=== PATIENT | male | born 1995 | race American Indian/Alaskan Native ===

== ENCOUNTER 2021-01-17 11:46 | Emergency (ER) | payer SELFPAY ==
--- NOTE | 2021-01-17 13:31 | Emergency Department Report ---
- General Stated complaint: FINGERS CUT/LAC Time Seen by Provider: 01/17/21 13:29 Source: patient Mode of arrival: Ambulatory Limitations: No Limitations - History of Present Illness Initial comments: 25 yo AA comes to ER with lac to his 1/2/3 right finger. 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 tdap unknown Full ROM of hand/fingers MD complaint: other -: Sudden, hour(s) Tetanus Up to Date: no Location: RUE Severity: mild Quality: aching Consistency: constant Improves with: none Worsens with: none Context: other Associated symptoms: denies other symptoms - Related Data Previous Rx's Medication Instructions Recorded Last Taken Type cephALEXin [Keflex] 500 mg PO Q12HR #20 cap 01/17/21 Unknown Rx Allergies Allergy/AdvReac Type Severity Reaction Status Date / Time No Known Allergies Allergy Unverified 01/17/21 13:42 Abscess Boil HPI - HPI Stated Complaint: FINGERS CUT/LAC Time Seen by Provider: 01/17/21 13:29 Home Medications: Previous Rx's Medication Instructions Recorded Last Taken Type cephALEXin [Keflex] 500 mg PO Q12HR #20 cap 01/17/21 Unknown Rx Allergies/Adverse Reactions: Allergies Allergy/AdvReac Type Severity Reaction Status Date / Time No Known Allergies Allergy Unverified 01/17/21 13:42 ED Review of Systems ROS: Stated complaint: FINGERS CUT/LAC Other details as noted in HPI Comment: All other systems reviewed and negative ED Past Medical Hx - Past Medical History Previous Medical History?: Yes Hx Asthma: Yes - Surgical History Past Surgical History?: No - Medications Home Medications: Home Medications Medication Instructions Recorded Confirmed Last Taken Type cephALEXin [Keflex] 500 mg PO Q12HR #20 cap 01/17/21 Unknown Rx ED Physical Exam - General Limitations: No Limitations General appearance: alert, in no apparent distress - Head Head exam: Present: atraumatic, normocephalic - Eye Eye exam: Present: normal appearance - ENT ENT exam: Present: mucous membranes moist - Neck Neck exam: Present: normal inspection - Respiratory Respiratory exam: Present: normal lung sounds bilaterally. Absent: respiratory distress - Cardiovascular Cardiovascular Exam: Present: regular rate, normal rhythm. Absent: systolic murmur, diastolic murmur, rubs, gallop - GI/Abdominal GI/Abdominal exam: Present: soft, normal bowel sounds - Rectal Rectal exam: Present: deferred - Extremities Exam Extremities exam: Present: normal inspection - Back Exam Back exam: Present: normal inspection - Neurological Exam Neurological exam: Present: alert, oriented X3 - Psychiatric Psychiatric exam: Present: normal affect, normal mood - Skin Skin exam: Present: warm, dry, normal color, other. Absent: rash - Other Other exam information: right hand index finger- skin flap/ U shaped superficial wound middle finger 1 cm lac - superficial ring finger- at DIP joint 1 cm lac; through SQ tissue; full ROM ED Course Vital Signs 01/17/21 13:40 Temperature 98.8 F Pulse Rate 64 Respiratory 16 Rate Blood Pressure 153/79 [Left] O2 Sat by Pulse 97 Oximetry - Joint Aspiration/Injection Consent Obtained: verbal consent Time Out Performed: Yes Indications: injection of medication Side of Body: right Ultrasound Guidance: No Skin Prep: Povidone-Iodine1% Amount of Anesthesia Used (mls): 6 Needle Size Used: 22G Syringe Size Used: 5cc Medication Injected, if any: Lidocaine Amount of Medication Injected (mls): 6 Patient Tolerated Procedure: well Complications: none Additional Comments: digital blood of right finger no 1/2/3 pt tolerated well - Laceration /Wound Repair right little finger Wound Location: upper extremity Wound Length (cm): 1 Wound's Depth, Shape: superficial, flap Wound Explored: no foreign body removed Irrigated w/ Saline (ccs): 50 Betadine Prep?: Yes Wound Debrided: minimal Wound Repaired With: sutures Suture Size/Type: 4:0 Number of Sutures: 1 Layer Closure?: No Sterile Dressing Applied?: Yes Progress: tolerated well right middle finger Wound Location: upper extremity Wound Length (cm): 1 Wound's Depth, Shape: superficial, linear Wound Explored: no foreign body removed Irrigated w/ Saline (ccs): 50 Betadine Prep?: Yes Wound Debrided: minimal Wound Repaired With: sutures Suture Size/Type: 4:0 Number of Sutures: 1 Layer Closure?: No Sterile Dressing Applied?: Yes Progress: tolerated well right ring finger Wound Location: upper extremity Wound Length (cm): 1 Wound's Depth, Shape: contused tissue Wound Explored: no foreign body removed Irrigated w/ Saline (ccs): 100 Betadine Prep?: Yes Wound Debrided: minimal Wound Repaired With: sutures Number of Sutures: 7 Layer Closure?: No Sterile Dressing Applied?: Yes Progress: tolerated well ED Medical Decision Making - Medical Decision Making tdap given wound care given lacs repaired- see procedure remains neurovasc intact before and after repair with full rom dressing applied wound care instructions provided pt dc home with dc plan of care including wound care, meds, pain control and follow up in 7 days for removal. Pt verbalizes understanding Vital Signs (72 hours) 01/17/21 13:40 Temperature 98.8 F Pulse Rate 64 Respiratory 16 Rate Blood Pressure 153/79 [Left] O2 Sat by Pulse 97 Oximetry - Differential Diagnosis lac Critical care attestation.: If time is entered above; I have spent that time in minutes in the direct care of this critically ill patient, excluding procedure time. ED Disposition Clinical Impression: Laceration of fingers without complication Disposition: 01 HOME / SELF CARE / HOMELESS Is pt being admited?: No Does the pt Need Aspirin: No Condition: Stable Instructions: Laceration Care, Adult Additional Instructions: RETURN TO ER IN 7 DAYS FOR SUTURE REMOVAL DIET TOLERATED STAY WELL HYDRATED MOTRIN OR TYLENOL FOR PAIN MED ORDERED TODAY TDAP WAS GIVEN TODAY Prescriptions: cephALEXin [Keflex] 500 mg PO Q12HR #20 cap Referrals: CHRISTOPHER TUCKER MD [Staff Physician] - 3-5 Days Time of Disposition: 14:24
[2021-01-17 13:43] VITALS: BP 153/79
[2021-01-17] MEDS ORDERED: SODIUM CHLORIDE 0.9% IRR 500 ML BOTTLE IR SCH (14:00)
[2021-01-17] MEDS ORDERED: NEOMY 3.5 MG/BACIT 400 UNITS/POLY B 5000 UNITS/GM OINT PACKET TP SCH (14:00)
[2021-01-17] MEDS ORDERED: LET TOPICAL (LIDOCAINE/EPINEPHRINE/TETRACAINE) 3 ML TP SCH (14:00)
[2021-01-17] MEDS ORDERED: oxyCODONE /ACETAMINOPHEN 5-325MG TAB PO SCH (14:00)
[2021-01-17] MEDS ORDERED: cephALEXin 500 MG CAP PO SCH (14:00)
[2021-01-17] MEDS ORDERED: LIDOCAINE (1%) 10 MG/1 ML VIAL 20 ML MDV INFILTRATI SCH (14:00)
[2021-01-17] MEDS ORDERED: TETANUS,DIPH,PERTUSS(ACELL) VACCINE 0.5 ML SYRINGE IM ONE (14:30)
== END 2021-01-17 15:33 | disposition home or self-care (01) ==
LOC: ED 11:46
DX: S61.216A Laceration without foreign body of right little finger without damage to nail, initial encounter (principal); S61.212A Laceration without foreign body of right middle finger without damage to nail, initial encounter; S61.214A Laceration without foreign body of right ring finger without damage to nail, initial encounter; J45.909 Unspecified asthma, uncomplicated; Z98.890 Other specified postprocedural states; W26.0XXA Contact with knife, initial encounter; Y93.89 Activity, other specified; Y92.89 Other specified places as the place of occurrence of the external cause; Y99.8 Other external cause status
CPT/HCPCS: 12002; 20600; 90471; 90715; 99282; A6250